=== PATIENT | male | born 1995 ===

== ENCOUNTER 2023-07-12 01:35 | Emergency (ER) | payer SELFPAY ==
[~2023-07-12] VITALS: Ht 170.2 cm; Wt 75.0 kg
[2023-07-12 01:47] VITALS: BP 130/83; PULSE 110; RESP 24; TEMP 99.4; O2SAT 98
== END 2023-07-12 02:55 ==
LOC: ER 01:36
DX: Z02.89 Encounter for other administrative examinations (principal); M54.2 Cervicalgia; M25.512 Pain in left shoulder; M25.531 Pain in right wrist
CPT/HCPCS: 99283